=== PATIENT | female | born 1950 | race Hispanic/Latino ===

== ENCOUNTER 2017-05-04 12:32 | Outpatient (CLI) | payer MEDICARE ==
--- NOTE | 2017-05-05 11:12 | PET Report ---
PET/CT:05/04/17 12:32:00 CLINICAL: Right lung cancer initial staging RADIOPHARMACEUTICAL: 15.0mCi F18-FDG. COMPARISON: None. TECHNIQUE- Following intravenous injection of F-18 FDG and an approximately 60 minute uptake period, CT and PET images from the mid skull to the upper thighs were acquired with the patient in the fasted state. No contrast was administered. The CT protocol used for this PET CT study is designed for attenuation correction and anatomic localization of PET abnormalities. This fisher line CT is not desired to produce and cannot replace, [id number] diagnostic CT scans with specific imaging protocols for different body parts and indications. Plasma glucose at the time of this test: 97g/dl. The standardized uptake values (SUV) are normalized to patient body weight and indicate the highest activity concentration (SUV max) in a given disease site. FINDINGS: Brain--Physiologic FDG uptake in the visualized regions of the brain. Neck--An FDG avid left level III jugular chain lymph node measures 1.0 x 0.8 cm with SUV 8.3. An FDG avid right supraclavicular mass with SUV 12.0. Only a portion of the mass is FDG avid and the mass measures approximately 6 x 2.7 cm. Physiologic FDG uptake in mucosal structures of the neck. Chest--Physiologic FDG uptake in mediastinal blood pool and myocardium. Lungs--An FDG avid right upper lobe suprahilar mass measures approximately 3.7 x 2.5 x 2.7 cm with SUV 11.9. Pleura/pericardium--No abnormal uptake. No pleural effusion. Thoracic nodes--A retrocaval pretracheal FDG avid lymph node has poorly defined margins with SUV 7.0. A non-FDG avid mass anterior to this mass measures approximately 1.7 cm x 1.4 cm. A poorly marginated AP window lymph node with SUV 6.7. Hepatobiliary--No abnormal uptake. Liver background SUV mean, as a reference for comparing FDG studies, is 2.0 . No liver mass. Spleen--No abnormal uptake. Pancreas--No abnormal uptake. Adrenal Glands--No abnormal uptake. Kidneys/Ureters/Bladder--No abnormal uptake. However, the urinary bladder is distended and relatively large and there is a 3 cm round fluid density structure in the midline associated with the urethra. Abdominopelvic Nodes--No abnormal uptake. Bowel/Peritoneum/Mesentery--No abnormal uptake. Pelvic organs--No abnormal uptake. Bones/Soft Tissues--No abnormal uptake. IMPRESSION-1. 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 2. No evidence of adrenal, hepatic or skeletal metastasis. 3. 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
== END 2017-05-04 12:33 | disposition home or self-care (01) ==
LOC: PET 12:32
PROVIDERS: ATTEND Internal Medicine Hematology & Oncology
DX: C79.89 Secondary malignant neoplasm of other specified sites (principal); C34.91 Malignant neoplasm of unspecified part of right bronchus or lung; N32.89 Other specified disorders of bladder; R91.8 Other nonspecific abnormal finding of lung field; Z79.899 Other long term (current) drug therapy
CPT/HCPCS: 78815; 82962; A9552